=== PATIENT | male | born 1940 | race Two or more races ===

== ENCOUNTER 2017-04-08 06:15 | Emergency (ER) | payer MEDICARE, OTHER ==
--- NOTE | 2017-04-08 07:41 | ER Document Report ---
ED Blood Pressure Problem - General Chief Complaint: Blood Pressure Problem Stated Complaint: BLOOD PRESSURE PROBLEM Time Seen by Provider: 04/08/17 07:40 Mode of Arrival: Ambulatory Information source: Patient Notes: Patient is a 76-year-old male with hypertension who presents to the ER today for elevated blood pressure readings since 2 AM this morning. Patient states that he has kept a record over the last couple of days as he usually does and that his blood pressures have been normal, 125/83, the blood pressure medications he takes, telmisartan with hydrochlorothiazide and atenolol 50 work to bring his blood pressures down whenever they are higher than that. Patient states that he smoked a cigar yesterday at about 2 PM and then at 2 AM woke up to take his blood pressure. He states he was having no symptoms at that time, denies headache, blurred vision, chest pain, shortness of breath or any other symptoms, states "I just cannot sleep and my blood pressure is high." He states at that time his blood pressure was 150, 160s over 100 so he took 1 of his telmisartan hydrochlorothiazide pills. He states about an hour later at 3 AM it was still elevated about the same so he took an atenolol 50, he states that it 6 AM he took another telmisartan and atenolol 50 because it was still about the same. Patient comes asking if he is allowed to take his blood pressure medications like this. He denies any symptoms at this time. TRAVEL OUTSIDE OF THE [place] IN LAST 30 DAYS: No Past Medical History - General Information source: Patient - Social History Smoking Status: Current Some Day Smoker Family History: Reviewed & Not Pertinent Patient has suicidal ideation: No Patient has homicidal ideation: No Renal/ Medical History: Denies: Hx Peritoneal Dialysis Review of Systems - Review of Systems Constitutional: No symptoms reported EENT: No symptoms reported Cardiovascular: See HPI Respiratory: No symptoms reported Gastrointestinal: No symptoms reported Genitourinary: No symptoms reported Male Genitourinary: No symptoms reported Musculoskeletal: No symptoms reported Skin: No symptoms reported Hematologic/Lymphatic: No symptoms reported Neurological/Psychological: No symptoms reported Physical Exam - Vital signs Vitals: Temp Pulse Resp BP Pulse Ox 98.7 F 56 L 18 170/95 H 100 04/08/17 06:18 04/08/17 06:18 04/08/17 06:18 04/08/17 06:18 04/08/17 06:18 - Notes Notes: PHYSICAL EXAMINATION: GENERAL: Well-appearing and in no acute distress. HEAD: Atraumatic, normocephalic. EYES: Pupils equal round and reactive to light, extraocular movements intact, sclera anicteric, conjunctiva are normal. NECK: Normal range of motion, supple without lymphadenopathy LUNGS: CTAB and equal. No wheezes rales or rhonchi. HEART: Regular rate and rhythm without murmurs ABDOMEN: Soft, no tenderness. No guarding, no rebound BACK: no vertebral tenderness, normal ROM GI/: no CVA tenderness EXTREMITIES: Normal range of motion, no pitting edema. No cyanosis. NEUROLOGICAL: Cranial nerves grossly intact. Normal sensory/motor exams. PSYCH: Normal mood, normal affect. SKIN: Warm, Dry, normal turgor, no rashes or lesions noted Course - Re-evaluation Re-evalutation: 04/08/17 08:35 I did advise patient that he should not be taking his blood pressure medications like this as neither of these are as needed medications. I did advise him to follow-up with his primary care provider, although it looks like other than today the blood pressure medications have been working. - Vital Signs Vital signs: Temp Pulse Resp BP Pulse Ox 98.7 F 53 L 18 143/96 H 96 04/08/17 06:18 04/08/17 08:49 04/08/17 08:49 04/08/17 08:49 04/08/17 08:49 Discharge - Discharge Clinical Impression: Hypertension Qualifiers: Hypertension type: unspecified Qualified Code(s): I10 - Essential (primary) hypertension Condition: Stable Disposition: HOME, SELF-CARE Additional Instructions: Please take your blood pressure medication ONLY as prescribed, it is not an as needed medication. Return immediately for any new or worsening symptoms. Follow up with primary care provider, call tomorrow to make followup appointment. Referrals: ANDREZ WILKINSON MD [Primary Care Provider] - Follow up as needed
[2017-04-08 08:39] VITALS: BP 143/96
== END 2017-04-08 08:49 | disposition home or self-care (01) ==
LOC: ER 06:15
DX: I10 Essential (primary) hypertension (principal); F17.200 Nicotine dependence, unspecified, uncomplicated
CPT/HCPCS: 99283